=== PATIENT | female | born 1945 | race Caucasian/White ===

== ENCOUNTER 2024-07-23 15:45 | Day surgery (SDC) | payer MEDICARE ==
[~2024-07-23] VITALS: Ht 160 cm; Wt 71.6 kg
[2024-07-23 16:27] LABS: BASO # 0.1 10^3/uL (0.0-0.2); BASO % 0.5 % (0.0-1.0); EOS # 0.1 10^3/uL (0.0-0.5); EOS % 0.3 % (0.0-3.0); HEMATOCRIT 43.3 % (36.0-47.0); HEMOGLOBIN 14.2 g/dl (12.0-15.5); LYMPH # 2.7 10^3/uL (1.5-5.0); LYMPH % 17.8 % (24.0-44.0); MEAN CORPUSCULAR HGB CONC 32.8 g/dl (32.0-36.5); MEAN CORPUSCULAR VOLUME 91.4 fl (80.0-96.0); MONO # 1.4 10^3/uL (0.0-0.8); MONO % 9.1 % (2.0-8.0); PLATELET COUNT, AUTOMATED 268 10^3/uL (150-450); RED BLOOD COUNT 4.74 10^6/uL (4.00-5.40); WHITE BLOOD COUNT 15.3 10^3/uL (4.0-10.0)
[2024-07-23] MEDS ORDERED: ISOVUE-370 76% 100ML VIAL As Ordered ONE (16:28)
[2024-07-23] MEDS: ONDANSETRON 4MG 2ML VIAL IV ONE (16:44)
[2024-07-23] MEDS: ACETAMINOPHEN *IV* 1,000 MG in IV 1 EA IV ONE (16:47)
[2024-07-23 16:55] LABS: ALBUMIN 3.9 G/DL (3.2-5.2); BILIRUBIN,DIRECT 0.1 MG/DL (<0.4); BILIRUBIN,TOTAL 0.6 MG/DL (0.3-1.2); TOTAL PROTEIN 7.4 G/DL (5.7-8.2)
[2024-07-23] MEDS: PIPERACILLIN/TAZOBACTAM SOD 4.5 GM in DEXTROSE 5% (D5W) ADV/MINI-BAG 50 ML IV ONE (17:09)
[2024-07-23] MEDS ORDERED: CIDA500T2 PO (17:42)
[2024-07-23] MEDS ORDERED: GALZ50CA PO (17:42)
[2024-07-23] MEDS ORDERED: MULTTAB61 PO (17:42)
[2024-07-23] MEDS ORDERED: CALCTAB89 PO (17:42)
[2024-07-23] MEDS ORDERED: D31000CA4 PO (17:42)
[2024-07-23] MEDS ORDERED: HOME MED LIST COMPLETE! XX SCH (17:45)
[2024-07-23] MEDS ORDERED: LIDOCAINE 2% 100MG/5ML SDV (FOR ANES.) As Ordered ONE (18:44)
[2024-07-23] MEDS ORDERED: MIDAZOLAM INJ 2MG/2ML VIAL As Ordered ONE (18:44)
[2024-07-23] MEDS ORDERED: propofoL 200 MG/20 ML VIAL As Ordered ONE (18:44)
[2024-07-23] MEDS ORDERED: fentaNYL 100 MCG/2 ML INJECTION As Ordered ONE (18:44)
[2024-07-23] MEDS ORDERED: ROCURONIUM BROMIDE 50MG/5ML VIAL As Ordered ONE (18:44)
[2024-07-23] MEDS ORDERED: ePHEDrine SULFATE 25 MG/5 ML(5MG/ML) SYRINGE As Ordered ONE (18:46)
[2024-07-23] MEDS ORDERED: ONDANSETRON 4MG 2ML VIAL As Ordered ONE (18:46)
[2024-07-23] MEDS ORDERED: SUGAMMADEX SODIUM 500 MG/5 ML VIAL (BRIDION) As Ordered ONE (18:47)
[2024-07-23] MEDS ORDERED: ACETAMINOPHEN 1000MG 100ML IV BAG As Ordered ONE (18:57)
[2024-07-23] MEDS ORDERED: dexmedeTOMIDine (4MCG/ML)200MCG/50ML BTL (PRECEDEX) As Ordered ONE (19:03)
[2024-07-23] MEDS ORDERED: HYDR-3713 PO (19:28)
[2024-07-23] MEDS ORDERED: METOCLOPRAMIDE INJ 10MG/2ML VIAL IV PRN (19:35)
[2024-07-23] MEDS ORDERED: fentaNYL 100 MCG/2 ML INJECTION IV PRN (19:35)
[2024-07-23] MEDS ORDERED: LR 1,000 ML IV SCH (19:35)
[2024-07-23] MEDS ORDERED: oxyCODONE 5MG TAB PO PRN (19:35)
[2024-07-23 20:00] VITALS: BP 150/67; TEMP 97.2; O2SAT 95
== END 2024-07-23 20:57 | disposition home or self-care (01) ==
LOC: M ED 15:45 → M SDC 17:45
PROVIDERS: ATTEND Surgery
DX: K35.80 Unspecified acute appendicitis (principal); K31.9 Disease of stomach and duodenum, unspecified; Z90.710 Acquired absence of both cervix and uterus; Z98.890 Other specified postprocedural states; Z88.1 Allergy status to other antibiotic agents; Z88.8 Allergy status to other drugs, medicaments and biological substances; Z79.899 Other long term (current) drug therapy
CPT/HCPCS: 44970; 74177; 80047; 80076; 81001; 83605; 83690; 85025; 88304; 96365; 96367; 96375; 99284; J0131; J0665; J1100; J2250; J2405; J2543; J3010; Q9967